=== PATIENT | female | born 1995 | race Native Hawaiian/Other Pacific Islander ===

== ENCOUNTER 2021-06-20 20:28 | Inpatient (IN) | payer MEDICAID ==
[2021-06-20] MEDS ORDERED: SODIUM CHLORIDE 0.9% 1000 ML 1,000 ML IV ONE ×2 (21:09→21:44)
--- NOTE | 2021-06-20 21:17 | Event Note ---
ED Screening Note Date of service: 06/20/21 Time: 21:09 ED Screening Note: This initial assessment/diagnostic orders/clinical plan/treatment(s) is/are subject to change based on patients health status, clinical progression and re- assessment by fellow clinical providers in the ED. Further treatment and workup at subsequent clinical providers discretion. Patient/guardian urged not to elope from the ED as their condition may be serious if not clinically assessed and managed. Initial orders include:
[2021-06-20] MEDS ORDERED: cefTRIAXone/NS 2 GM/100 ML 2 GM/100 ML BAG IV ONE (21:42)
[2021-06-20] MEDS ORDERED: AZITHROMYCIN/NS 500 MG/250 ML 500 MG/250 ML BAG IV ONE (21:42)
--- NOTE | 2021-06-20 21:47 | Emergency Department Report ---
ED General Adult HPI - General Chief complaint: Hyperglycemia Stated complaint: COUGH HIGH BLOOD PRESSURE PUI?: Yes Source: patient Mode of arrival: Ambulatory Limitations: No Limitations - History of Present Illness Initial comments: Patient is a 25-year-old female with past medical history of hypertension, DM1, autism and developmental delay who presents to the emergency department with complaints of cough and fevers. Patient also has hyperglycemia. Patient's mother is present with her but provides some limited history. The mother states that she recently got a COVID-19 vaccination but states the patient did not. She states that she felt tired so did not bring the patient to the emergency department on yesterday although her heart rate was elevated. She has had 3 to 4 days of cough and fever. Her mother states that she has been compliant on her insulin therapy. - Related Data Home Medications Medication Instructions Recorded Confirmed Last Taken Atorvastatin [Lipitor] 20 mg PO QHS 01/22/15 03/01/21 Unknown amLODIPine 10 mg PO DAILY 01/22/15 03/01/21 Unknown Atenolol [Tenormin] 100 mg PO DAILY 03/01/21 03/01/21 Unknown Ondansetron [Zofran ODT TAB] 4 mg PO Q8HR PRN 03/01/21 03/01/21 Unknown Previous Rx's Medication Instructions Recorded Last Taken Type Famotidine [Pepcid] 20 mg PO BID #60 tablet 03/03/21 Unknown Rx Insulin Glargine [Lantus VIAL] 15 units SUB-Q QHS 30 Days #2 vial 03/03/21 Unknown Rx Lispro Insulin [HumaLOG] 3 unit SUB-Q ACHS 30 Days #2 vial 03/03/21 Unknown Rx Allergies Allergy/AdvReac Type Severity Reaction Status Date / Time acetaminophen [From Tylenol] Allergy Unknown Verified 02/28/21 11:13 ED Review of Systems ROS: Stated complaint: COUGH HIGH BLOOD PRESSURE Other details as noted in HPI Comment: Unobtainable due to pts medical conditions ED Past Medical Hx - Past Medical History Previous Medical History?: Yes Hx Hypertension: Yes Hx Diabetes: Yes Hx GERD: Yes Hx HIV: No - Surgical History Past Surgical History?: No - Social History Smoking Status: Never Smoker - Medications Home Medications: Home Medications Medication Instructions Recorded Confirmed Last Taken Type Atorvastatin [Lipitor] 20 mg PO QHS 01/22/15 03/01/21 Unknown History amLODIPine 10 mg PO DAILY 01/22/15 03/01/21 Unknown History Atenolol [Tenormin] 100 mg PO DAILY 03/01/21 03/01/21 Unknown History Ondansetron [Zofran ODT TAB] 4 mg PO Q8HR PRN 03/01/21 03/01/21 Unknown History Famotidine [Pepcid] 20 mg PO BID #60 tablet 03/03/21 Unknown Rx Insulin Glargine [Lantus VIAL] 15 units SUB-Q QHS 30 Days #2 vial 03/03/21 Unknown Rx Lispro Insulin [HumaLOG] 3 unit SUB-Q ACHS 30 Days #2 vial 03/03/21 Unknown Rx ED Physical Exam - General Limitations: No Limitations General appearance: alert - Eye Eye exam: Present: normal appearance - ENT ENT exam: Present: mucous membranes moist - Neck Neck exam: Present: normal inspection - Respiratory Respiratory exam: Present: normal lung sounds bilaterally. Absent: wheezes, rales - Cardiovascular Cardiovascular Exam: Present: tachycardia - GI/Abdominal GI/Abdominal exam: Present: soft. Absent: distended, tenderness - Rectal Rectal exam: Present: deferred - Extremities Exam Extremities exam: Present: normal inspection, full ROM. Absent: tenderness - Back Exam Back exam: Present: normal inspection, full ROM. Absent: tenderness, CVA tenderness (R), CVA tenderness (L) - Neurological Exam Neurological exam: Present: alert, other (Patient is at her baseline. She does have developmental delay.) - Skin Skin exam: Present: warm, dry, intact ED Course Vital Signs 06/20/21 06/20/21 06/20/21 20:45 21:32 21:42 Temperature 98.8 F Pulse Rate 149 H 133 H Respiratory 18 21 Rate Blood Pressure 137/93 Blood Pressure 137/82 [Left] O2 Sat by Pulse 93 96 96 Oximetry 06/20/21 06/20/21 06/20/21 22:00 22:31 23:01 Temperature Pulse Rate 142 H 133 H Respiratory 27 H 12 13 Rate Blood Pressure 137/92 156/103 Blood Pressure [Left] O2 Sat by Pulse 97 95 96 Oximetry 06/20/21 06/20/21 06/21/21 23:31 23:55 00:01 Temperature Pulse Rate 135 H 132 H 133 H Respiratory 15 12 13 Rate Blood Pressure 156/103 153/114 153/114 Blood Pressure [Left] O2 Sat by Pulse 97 95 97 Oximetry 06/21/21 06/21/21 06/21/21 00:31 01:01 01:02 Temperature Pulse Rate 132 H 130 H 132 H Respiratory 17 15 Rate Blood Pressure 153/114 153/105 153/105 Blood Pressure [Left] O2 Sat by Pulse 97 98 Oximetry 06/21/21 01:15 Temperature Pulse Rate 110 H Respiratory 14 Rate Blood Pressure Blood Pressure 129/87 [Left] O2 Sat by Pulse 96 Oximetry - Reevaluation(s) Reevaluation #1: 06/21/21 00:17 Patient remains tachycardic despite IV fluids. Her chest x-ray appears clear. Her dimer is negative. Reevaluation #2: 06/21/21 00:27 Blood sugar is elevated but patient is not in obvious DKA. Will give subcu insulin and continue IV fluid rehydration. Reevaluation #3: 06/21/21 02:16 After admission orders patient mother decided to have the patient go AGAINST MEDICAL ADVICE given she cannot stay here with her daughter. I discussed the risks including worsening of her blood sugars, worsening tachycardia worsening respiratory distress. I also discussed that the patient could . The patient's mother is patient states that she cannot be with her daughter and her daughter cannot be with her. Patient's mother is taking patient AMA. ED Medical Decision Making - Lab Data Result diagrams: 06/20/21 22:46 06/20/21 22:46 - EKG Data -: EKG Interpreted by Me EKG shows normal: axis, intervals Rate: tachycardia No standard instances T wave inversions noted in: II, III - Radiology Data Radiology results: report reviewed, image reviewed - Medical Decision Making 25-year-old female who presents to the emergency department with complaint of hyperglycemia as well as cough. On my examination patient is tachycardic and coughing. She is not in any obvious respiratory distress but has had some lower oxygen saturations. The differential includes pneumonia, bronchitis, pulmonary embolism. Plan to evaluate for sepsis and sepsis order set has been ordered in addition to a D-dimer. Patient is being started on antibiotics given the high risk for sepsis and evidence of possible infection due to patient's heart rate and coughing. Critical care attestation.: If time is entered above; I have spent that time in minutes in the direct care of this critically ill patient, excluding procedure time. ED Disposition Clinical Impression: Hyperglycemia, Suspected COVID-19 virus infection, Lactic acidosis Disposition: LEFT AGAINST MED ADVICE Is pt being admited?: Yes Does the pt Need Aspirin: No Condition: Stable Time of Disposition: 00:33
[2021-06-20 23:02] LABS: Basophils # (Auto) 0.1 K/mm3 (0.0-0.1); Basophils % (Auto) 0.4 % (0.0-1.8); Eosinophils # (Auto) 0.1 K/mm3 (0.0-0.4); Eosinophils % (Auto) 0.9 % (0.0-4.3); Hematocrit 46.2 % (30.3-42.9); Hemoglobin 16.1 gm/dl (10.1-14.3); Lymphocytes # (Auto) 2.2 K/mm3 (1.2-5.4); Lymphocytes % (Auto) 15.6 % (13.4-35.0); Mean Corpuscular HGB Conc 35 % (30-34); Mean Corpuscular Volume 87 fl (79-97); Monocytes # (Auto) 1.1 K/mm3 (0.0-0.8); Monocytes % (Auto) 7.7 % (0.0-7.3); Platelet Count 391 K/mm3 (140-440); Red Blood Count 5.34 M/mm3 (3.65-5.03); Red Cell Distribution Width 12.4 % (13.2-15.2)
[2021-06-20 23:23] LABS: Alanine Aminotransferase 82 units/L (7-56); Albumin 4.3 g/dL (3.9-5); Blood Urea Nitrogen 10 mg/dL (7-17); Calcium 10.3 mg/dL (8.4-10.2); Hemolysis Index 5
[2021-06-20 23:28] LABS: BUN/Creatinine Ratio 25
--- NOTE | 2021-06-20 23:37 | XRay Report ---
CHEST 1 VIEW 06/20/2021 11:17 PM INDICATION / CLINICAL INFORMATION: cough; tachycardia. COMPARISON: 02/28/2021 FINDINGS: SUPPORT DEVICES: None. HEART / MEDIASTINUM: No significant abnormality. LUNGS / PLEURA: No significant pulmonary or pleural abnormality. No pneumothorax. ADDITIONAL FINDINGS: No significant additional findings. IMPRESSION: 1. No acute findings. Signer Name: Polo Dove MD Signed: 06/20/2021 11:32 PM Workstation Name: [id number]
[2021-06-21] MEDS ORDERED: INSULIN REGULAR, HUMAN 100 UNITS/1 ML SUB-Q ONE (00:14)
[2021-06-21] MEDS ORDERED: ONDANSETRON 4 MG/2 ML INJ IV PRN (00:18)
[2021-06-21] MEDS ORDERED: IBUPROFEN 600 MG TAB PO PRN (00:18)
[2021-06-21] MEDS ORDERED: ALBUTEROL 2.5 MG/3 ML NEBU IH PRN (00:18)
[2021-06-21] MEDS ORDERED: DEXTROSE 50% IN WATER (25GM) 50 ML SYRINGE IV PRN (00:18)
[2021-06-21] MEDS ORDERED: METOPROLOL TARTRATE 5 MG/5 ML INJ IV PRN (00:26)
[2021-06-21] MEDS ORDERED: INSULIN REGULAR, HUMAN 100 UNITS/1 ML SUB-Q SCH (01:00)
[2021-06-21 01:38] VITALS: BP 129/87
[2021-06-21 02:16] LABS: Hepatitis B Surface Antigen Non-Reactive (Negative); Hepatitis C Virus Antibody Non-Reactive (NonReactive)
--- NOTE | 2021-06-21 02:17 | Event Note ---
Date: 06/21/21 Patient left AMA before I had the opportunity to evaluate patient
[2021-06-21 03:37] LABS: C-Reactive Protein 12.4 mg/dL (0.00-1.30)
[2021-06-21] MEDS ORDERED: INSULIN GLARGINE 100 UNITS/ML SUB-Q SCH (08:00)
[2021-06-21] MEDS ORDERED: ENOXAPARIN 40 MG/0.4 ML INJ SUB-Q SCH (10:00)
[2021-06-21] MEDS ORDERED: cefTRIAXone/NS 1 GM/50 ML 1 GM/50 ML BAG IV SCH (10:00)
[2021-06-21] MEDS ORDERED: AZITHROMYCIN/NS 500 MG/250 ML 500 MG/250 ML BAG IV SCH (10:00)
[2021-06-21] MEDS ORDERED: atenoloL 50 MG TAB PO SCH (10:00)
[2021-06-21] MEDS ORDERED: amLODIPine 10 MG TAB PO SCH (10:00)
[2021-06-21] MEDS ORDERED: FAMOTIDINE 20 MG/2 ML INJ IV SCH (10:00)
[2021-06-21] MEDS ORDERED: DOCUSATE SODIUM 100 MG CAP PO SCH (10:00)
--- NOTE | 2021-06-22 12:17 | Electrocardiograph Report ---
[facility] Test Date: 2021-06-20 Test Time: 22:15:29 Pat Name: JENARO DOMINGO Department: Room: A360 1 Gender: F Eyelet Operator: CARMINE : 1995 Requested By: JAIDEN BRIGGS Order Number: [id number] Reading MD: Angeles Montero Measurements Intervals [place] Rate: 131 P: 38 ID: [id number] QRS: 35 QRSD: 92 T: -13 QT: 309 QTc: 458 Interpretive Statements Sinus tachycardia Incomplete right bundle branch block Low voltage, precordial leads ST depression consider inferior ischemia Compared to ECG 02/28/2021 11:26:03 No significant change Electronically Signed On 06-22-2021 12:16:48 EDT by Angeles Montero
== END 2021-06-21 01:34 | disposition left against medical advice (07) | DRG 638 ==
LOC: ED 20:28 → 3A 06-21 00:18
PROVIDERS: ADMIT Internal Medicine Geriatric Medicine; ATTEND Internal Medicine Geriatric Medicine
DX: E10.65 Type 1 diabetes mellitus with hyperglycemia (principal); E87.2 Acidosis; F84.0 Autistic disorder; Z53.29 Procedure and treatment not carried out because of patient's decision for other reasons; I10 Essential (primary) hypertension; K21.9 Gastro-esophageal reflux disease without esophagitis; Z88.8 Allergy status to other drugs, medicaments and biological substances
CPT/HCPCS: 36415; 71045; 80053; 80074; 82140; 82728; 82805; 82962; 83036; 83615; 84145; 84484; 84703; 85025; 85379; 86140; 87040; 87116; 87430; 93005; 96365; 96367; G0378; J0456; J0696; J1815; J3246; J7030